=== PATIENT | female | born 1990 | race Caucasian/White ===

== ENCOUNTER 2019-05-14 20:31 | Emergency (ER) | payer SELFPAY ==
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
[2019-05-14 20:58] VITALS: BP 118/82
[2019-05-14 21:47] LABS: HCG Qualitative,Urine Negative (Negative)
--- NOTE | 2019-05-14 22:44 | XRay Report ---
RIGHT SHOULDER, 3 VIEWS 05/14/2019 INDICATION / CLINICAL INFORMATION: right shoulder pain. COMPARISON: None available. FINDINGS: No skeletal or soft tissue abnormality. Signer Name: Edgard Manzo MD Signed: 05/14/2019 10:40 PM Workstation Name: [id number]
== END 2019-05-14 22:00 | disposition left against medical advice (07) ==
LOC: ED 20:31
DX: M79.601 Pain in right arm (principal); Z53.21 Procedure and treatment not carried out due to patient leaving prior to being seen by health care provider
CPT/HCPCS: 81025

== ENCOUNTER 2019-06-13 21:07 | Emergency (ER) | payer SELFPAY ==
[2019-06-13 21:19] VITALS: BP 118/69
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
[2019-06-13 22:01] LABS: HCG Qualitative,Urine Negative (Negative)
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
[2019-06-13] MEDS ORDERED: NORCO 5/325 PO ONE (23:30)
[2019-06-13] MEDS ORDERED: VICKS SINEX NS ONE (23:30)
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
== END 2019-06-13 23:55 | disposition home or self-care (01) ==
LOC: ED 21:07
DX: S02.2XXA Fracture of nasal bones, initial encounter for closed fracture (principal); F17.200 Nicotine dependence, unspecified, uncomplicated; F12.10 Cannabis abuse, uncomplicated; Y04.0XXA Assault by unarmed brawl or fight, initial encounter; Y93.89 Activity, other specified; Y92.89 Other specified places as the place of occurrence of the external cause; Y99.8 Other external cause status
CPT/HCPCS: 70150; 81025; 99283

== ENCOUNTER 2019-10-14 18:20 | Emergency (ER) | payer SELFPAY ==
--- NOTE | 2019-10-14 18:47 | Emergency Department Report ---
Blank Doc - Documentation Documentation: 29-year-old female that presents with headaches. Denies any injuries or falls. Denies worst headache. Denies one sided weakness. Exam: Neuroexam within normal limits. This initial assessment/diagnostic orders/clinical plan/treatment(s) is/are subject to change based on patient's health status, clinical progression and re- assessment by fellow clinical providers in the ED. Further treatment and workup at subsequent clinical providers discretion. Patient/guardians urged not to elope from the ED as their condition may be serious if not clinically assessed and managed. Initial orders include: 1- Patient sent to [facility] for further evaluation and treatment
[2019-10-14 18:49] VITALS: BP 130/75
== END 2019-10-14 22:00 | disposition left against medical advice (07) ==
LOC: ED 18:20
DX: R51 Headache (principal); Z53.21 Procedure and treatment not carried out due to patient leaving prior to being seen by health care provider

== ENCOUNTER 2019-12-02 11:47 | Emergency (ER) | payer SELFPAY ==
[2019-12-02 12:52] VITALS: BP 106/74
[2019-12-02] MEDS ORDERED: ACETAMINOPHEN 500 MG TAB PO ONE (12:52)
[2019-12-02] MEDS ORDERED: ONDANSETRON 4 MG ODT TAB PO ONE (12:52)
--- NOTE | 2019-12-02 12:53 | Emergency Department Report ---
Chief Complaint: Abdominal Pain Stated Complaint: ABD PAIN/VOMITING Time Seen by Provider: 12/02/19 12:52 - HPI History of Present Illness: 29 y/o fem not sure if p/w painless n/v/d labs ua symptom control reassess ok for minor care Vital Signs 12/02/19 12:50 Temperature 98.6 F Pulse Rate 64 Respiratory 18 Rate Blood Pressure 106/74 O2 Sat by Pulse 98 Oximetry - Exam Vital Signs: Vital Signs 12/02/19 12:50 Temperature 98.6 F Pulse Rate 64 Respiratory 18 Rate Blood Pressure 106/74 O2 Sat by Pulse 98 Oximetry MSE screening note: Focused history and physical exam performed. Due to findings the following was ordered: ED Disposition for MSE Condition: Stable Instructions: Abdominal Pain (ED)
[2019-12-02 13:32] LABS: Bacteria,Urine 1+ /HPF (Negative); Bilirubin,Urine NEG (Negative); Blood,Urine NEG (Negative); Color,Urine Amber (Yellow); Mucus,Urine 3+ /HPF
[2019-12-02 14:26] LABS: Hematocrit 39.2 % (30.3-42.9); Hemoglobin 12.9 gm/dl (10.1-14.3); Mean Corpuscular HGB Conc 33 % (30-34); Mean Corpuscular Volume 89 fl (79-97); Platelet Count 293 K/mm3 (140-440); Red Blood Count 4.41 M/mm3 (3.65-5.03); Red Cell Distribution Width 13.8 % (13.2-15.2)
[2019-12-02 15:46] LABS: Alanine Aminotransferase 11 units/L (7-56); Albumin 4.3 g/dL (3.9-5); BUN/Creatinine Ratio 11; Blood Urea Nitrogen 8 mg/dL (7-17); Calcium 9.3 mg/dL (8.4-10.2); Hemolysis Index 7
== END 2019-12-02 20:25 | disposition left against medical advice (07) ==
LOC: ED 11:47
DX: R11.10 Vomiting, unspecified (principal); Z53.21 Procedure and treatment not carried out due to patient leaving prior to being seen by health care provider
CPT/HCPCS: 36415; 80053; 81001; 82550; 83690; 83735; 84702; 85027

== ENCOUNTER 2021-08-14 10:10 | Emergency (ER) | payer SELFPAY ==
[2021-08-14 10:22] VITALS: BP 120/75
[2021-08-14] MEDS ORDERED: predniSONE 20 MG TAB PO ONE (10:26)
[2021-08-14] MEDS ORDERED: KETOROLAC 60 MG/2 ML INJ IM ONE (10:26)
--- NOTE | 2021-08-14 11:12 | Emergency Department Report ---
ED Back Pain/Injury HPI - General Chief Complaint: Back Pain/Injury Stated Complaint: BACK PAIN Time Seen by Provider: 08/14/21 10:22 Source: patient Limitations: No Limitations - History of Present Illness Initial Comments: This is a 30-year-old female nontoxic, well nourished in appearance, no acute signs of distress presents to the ED with c/o of acute on chronic lower back pain. Patient stated that last week she was heavy lifting and developed this pain. Patient denies any radiation of pain. Patient denies any injuries or trauma. Denies any bladder or bowel instability. Patient denies any urinary symptoms. Denies any fever, chills, nausea, vomiting, headache, stiff neck, chest pain or shortness of breath. Patient denies any numbness or tingling. Denies any allergies. Denies significant past medical history. MD Complaint: back pain -: days(s) Similar Symptoms Previously: Yes Place: home Radiation: none Severity: mild Severity scale (0 -10): 8 Quality: aching Consistency: intermittent Improves With: immobilization, sitting upright Worsens With: movement, walking Context: while lifting, turning/twisting Associated Symptoms: denies other symptoms. denies: confusion, weakness, chest pain, numbness, difficulty walking, cough, difficulty urinating, diaphoresis, incontinence, fever/chills, constipation, headaches, abdominal pain, loss of appetite, malaise, nausea/vomiting, rash, seizure, shortness of breath, syncope - Related Data Previous Rx's Medication Instructions Recorded Last Taken Type Acetaminophen/Codeine [Tylenol 1 tab PO Q6H PRN #123 tab 06/13/19 Unknown Rx /Codeine # 3 tab] Oxymetazoline 0.05% [Vicks Sinex] 2 spray NS PRN PRN #1 bottle 06/13/19 Unknown Rx Cyclobenzaprine [Flexeril] 10 mg PO QHS PRN #10 tablet 08/14/21 Unknown Rx Naproxen 500 mg PO Q12H PRN #12 tablet 08/14/21 Unknown Rx Allergies Allergy/AdvReac Type Severity Reaction Status Date / Time No Known Allergies Allergy Unverified 05/14/19 20:58 ED Review of Systems ROS: Stated complaint: BACK PAIN Other details as noted in HPI Comment: All other systems reviewed and negative Constitutional: denies: chills, fever Eyes: denies: eye pain, eye discharge, vision change ENT: denies: ear pain, throat pain Respiratory: denies: cough, shortness of breath, wheezing Cardiovascular: denies: chest pain, palpitations Endocrine: no symptoms reported Gastrointestinal: denies: abdominal pain, nausea, diarrhea Genitourinary: denies: urgency, dysuria, discharge Musculoskeletal: back pain. denies: joint swelling, arthralgia Skin: denies: rash, lesions Neurological: denies: headache, weakness, paresthesias Psychiatric: denies: anxiety, depression Hematological/Lymphatic: denies: easy bleeding, easy bruising ED Past Medical Hx - Past Medical History Previous Medical History?: No - Surgical History Past Surgical History?: No - Social History Smoking Status: Current Every Day Smoker Substance Use Type: Marijuana - Medications Home Medications: Home Medications Medication Instructions Recorded Confirmed Last Taken Type Acetaminophen/Codeine [Tylenol 1 tab PO Q6H PRN #123 tab 06/13/19 Unknown Rx /Codeine # 3 tab] Oxymetazoline 0.05% [Vicks Sinex] 2 spray NS PRN PRN #1 bottle 06/13/19 Unknown Rx Cyclobenzaprine [Flexeril] 10 mg PO QHS PRN #10 tablet 08/14/21 Unknown Rx Naproxen 500 mg PO Q12H PRN #12 tablet 08/14/21 Unknown Rx ED Physical Exam - General Limitations: No Limitations General appearance: alert, in no apparent distress - Head Head exam: Present: atraumatic, normocephalic - Eye Eye exam: Present: normal appearance - Neck Neck exam: Present: normal inspection, full ROM. Absent: lymphadenopathy - Respiratory Respiratory exam: Present: normal lung sounds bilaterally. Absent: respiratory distress, wheezes, rales, rhonchi, stridor, chest wall tenderness, accessory muscle use, decreased breath sounds, prolonged expiratory - Cardiovascular Cardiovascular Exam: Present: regular rate, normal rhythm, normal heart sounds. Absent: bradycardia, tachycardia, irregular rhythm, systolic murmur, diastolic murmur, rubs, gallop - GI/Abdominal GI/Abdominal exam: Present: soft, normal bowel sounds. Absent: distended, tenderness, guarding, rebound, rigid, diminished bowel sounds, mass, bruit, pulsatile mass - Extremities Exam Extremities exam: Present: full ROM - Back Exam Back exam: Present: normal inspection, full ROM, paraspinal tenderness (left lumbar parapsinal). Absent: tenderness, CVA tenderness (R), CVA tenderness (L), muscle spasm, vertebral tenderness, rash noted - Expanded Back Exam Expanded Back exam: Absent: saddle anesthesia Back exam: Negative Straight Leg Raising: Left, Right 1 - pain here - Neurological Exam Neurological exam: Present: alert, oriented X3, normal gait - Psychiatric Psychiatric exam: Present: normal affect, normal mood - Skin Skin exam: Present: warm, dry, intact, normal color. Absent: rash ED Course Vital Signs 08/14/21 08/14/21 10:20 10:33 Temperature 98.5 F Pulse Rate 89 Respiratory 18 16 Rate Blood Pressure 120/75 O2 Sat by Pulse 100 Oximetry - Reevaluation(s) Reevaluation #1: 08/14/21 11:11 Patient is speaking in full sentences with no signs of distress noted. ED Medical Decision Making - Lab Data Lab Results 08/14/21 Range/Units Unknown Urine Color Yellow (Yellow) Urine Turbidity Cloudy (Clear) Urine pH 6.0 (5.0-7.0) Ur Specific [place] 1.020 (1.003-1.030) Urine Protein <15 mg/dl (Negative) mg/dL Urine Glucose (UA) Neg (Negative) mg/dL Urine Ketones Neg (Negative) mg/dL Urine Blood Neg (Negative) Urine Nitrite Neg (Negative) Urine Bilirubin Neg (Negative) Urine Urobilinogen 2.0 (<2.0) mg/dL Ur Leukocyte Esterase Neg (Negative) Urine WBC (Auto) 2.0 (0.0-6.0) /HPF Urine RBC (Auto) 2.0 (0.0-6.0) /HPF U Epithel Cells (Auto) 69.0 H (0-13.0) /HPF Urine Mucus 3+ /HPF Urine HCG, Qual Negative (Negative) - Medical Decision Making This is a 30-year-old female that presents with low back strain. Patient is stable was examined by me. There is no spinal tenderness. There is no cauda equina syndrome during examination. No bladder or bowel instability. Patient received Toradol 60 mg IM, flexeril and prednisone in the ED which stated that his symptoms has resolved and subsided. Patient stated family member will drive patient home after discharge due to possible drowsiness of Flexeril. Patient is notified of the UA results with no questions noted by the patient. Patient is discharged with muscle relaxant and Motrin. Patient was instructed not to operate any machinery while taking muscle relaxant as they cause her drowsiness. Patient was referred to Follow-up with a primary care doctor in 3-5 days or if symptoms worsen and continue return to emergency room as soon as possible. At time of discharge, the patient does not seem toxic or ill in appearance. No acute signs of distress noted. Patient agrees to discharge treatment plan of care. No further questions noted by the patient. Critical care attestation.: If time is entered above; I have spent that time in minutes in the direct care of this critically ill patient, excluding procedure time. ED Disposition Clinical Impression: Low back strain Qualifiers: Encounter type: initial encounter Qualified Code(s): S39.012A - Strain of muscle, fascia and tendon of lower back, initial encounter Disposition: 01 HOME / SELF CARE / HOMELESS Is pt being admited?: No Does the pt Need Aspirin: No Condition: Stable Instructions: Lumbosacral Strain, Cyclobenzaprine tablets Additional Instructions: Follow-up with your primary care doctor in 3-5 days or if symptoms worsen such as bladder or bowel stability, chest pain, short of breath, numbness or tingling sensation in extremities, headache, dizziness, visual changes, nausea vomiting, or abdominal pain, return back to emergency room as was possible. Take naproxen and Flexeril as prescribed. Do not operate heavy machinery while taking Flexeril due to sedation Prescriptions: Cyclobenzaprine [Flexeril] 10 mg PO QHS PRN #10 tablet PRN Reason: Muscle Spasm Naproxen 500 mg PO Q12H PRN #12 tablet PRN Reason: Pain , Severe (7-10) Referrals: PRIMARY CARE, [Referring] - 3-5 Days BOGDAN ETIENNE MD [Staff Physician] - 3-5 Days Forms: Work/School Release Form(ED) Time of Disposition: 13:09
[2021-08-14] MEDS ORDERED: CYCLOBENZAPRINE 10 MG TAB PO ONE (12:10)
[2021-08-14 12:19] LABS: Bilirubin,Urine NEG (Negative); Blood,Urine NEG (Negative); Color,Urine Yellow (Yellow); Mucus,Urine 3+ /HPF; Protein,Urine <15 mg/dL mg/dL (Negative)
[2021-08-14 13:05] LABS: HCG Qualitative,Urine Negative (Negative)
== END 2021-08-14 14:56 | disposition left against medical advice (07) ==
LOC: ED 10:10
DX: S39.012A Strain of muscle, fascia and tendon of lower back, initial encounter (principal); G89.29 Other chronic pain; F17.200 Nicotine dependence, unspecified, uncomplicated; F12.90 Cannabis use, unspecified, uncomplicated; X50.1XXA Overexertion from prolonged static or awkward postures, initial encounter; Y93.89 Activity, other specified; Y92.89 Other specified places as the place of occurrence of the external cause; Y99.8 Other external cause status
CPT/HCPCS: 81001; 81025; 96372; 99283; J1885; J7512